=== PATIENT | male | born 1965 | race Hispanic/Latino ===

== ENCOUNTER 2017-08-14 17:19 | Inpatient (IN) | payer BC ==
[2017-08-14 19:12] LABS: BASO # 0.02 K/mm3 (0.0-2.0); BASO % 0.3 % (0.0-3.0); EOS # 0.1 (0.0-0.7); EOS % 1.2 % (1.5-5.0); GRAN # 3.89 (1.4-6.5); GRAN % 57.7 % (50.0-68.0); HEMATOCRIT 42.7 % (42.0-52.0); LYMPH # 2.3 (1.2-3.4); LYMPH % 33.5 % (22.0-35.0); MEAN CELL VOLUME 89.3 fl (80.0-105.0); MEAN CORPUSCULAR HEMOGLOBIN 31.4 pg (25.0-35.0); MEAN CORPUSCULAR HGB CONC 35.1 g/dl (31.0-37.0); MONO # 0.5 (0.1-0.6); MONO % 7.3 % (1.0-6.0); RED CELL DISTRIBUTION WIDTH 12.8 % (11.5-14.5); WHITE BLOOD COUNT 6.7 10^3/ul (4.5-11.0)
[2017-08-14 19:30] LABS: INR 1.04 (0.93-1.08); PARTIAL THROMBOPLASTIN TIME 29.1 Seconds (25.1-36.5)
[2017-08-14 19:54] LABS: ALB/GLOB RATIO 1.3 (1.1-1.8); ALKALINE PHOSPHATASE 68 U/L (38-126); ALT/SGPT 41 U/L (7-56); AST/SGOT 24 U/L (17-59); BILIRUBIN,TOTAL 0.9 mg/dL (0.2-1.3); BLOOD UREA NITROGEN 15 mg/dL (7-21); CALCIUM 9.2 mg/dL (8.4-10.5); CARBON DIOXIDE 26 mmol/L (21-33); CHLORIDE 104 mmol/L (98-107); GFR AFRICAN-AMERICAN > 60; GLUCOSE,RANDOM 93 mg/dL (70-110)
--- NOTE | 2017-08-14 19:57 | ED PDOC ---
Arrival/HPI - General Historian: Patient - History of Present Illness Symptom Onset: Gradual Symptom Course: Intermittent, Worsening Quality: Aching, Cramping Severity Level: 4 <Danita Valadez - Last Filed: 08/14/17 21:16> <Sandrine Francois - Last Filed: 08/17/17 13:30> - General Chief Complaint: Lower Extremity Problem/Injury Time Seen by Provider: 08/14/17 18:10 - History of Present Illness Narrative History of Present Illness (Text): 08/14/17 19:51 52-year-old male with a history of hypertension and stents with cardiac catheterization on August 02 presents today with swelling and pain to the right leg that started 3 days ago. Patient states after the catheterization he had some ecchymosis around the leg which has been increasing since the procedure. Patient states 3 days ago he developed pain in the posterior aspect of the right leg and developed swelling in the leg. Patient states he spoke with his vice president of business development and his vice president of business development advised him to take 2 doses of Motrin and if the pain did not improve the patient was to come to the emergency room. Patient states the pain is intermittent and he describes it as a crampy sensation to the posterior aspect of the leg. He denies numbness weakness or tingling in the extremity. Denies chest pain or shortness of breath. Patient states he is on Plavix and aspirin. Patient denies fevers or chills. Denies pain at the catheterization site. 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 kerotectomy both eyes. scrotal surgery as a child. 3 stents - Anesthesia Hx Anesthesia Reactions: No Hx Malignant Hyperthermia: No - Suicidal Assessment Feels Threatened In Home Enviroment: No <Danita Valadez - Last Filed: 08/14/17 21:16> Family/Social History - Physician Review Nursing Documentation Reviewed: Yes Family/Social History: Unknown Family HX Smoking Status: Never Smoked Hx Alcohol Use: No Hx Substance Use: No Hx Substance Use Treatment: No <Danita Valadez - Last Filed: 08/14/17 21:16> Allergies/Home Meds <Danita Valadez - Last Filed: 08/14/17 21:16> <Sandrine Francois - Last Filed: 08/17/17 13:30> Allergies/Adverse Reactions: Allergies No Known Allergies Allergy (Verified 11/15/13 16:06) Home Medications: Home Meds Medication Instructions Recorded Confirmed Valsartan [Diovan] 80 mg PO DAILY 11/15/13 08/14/17 Atorvastatin [Lipitor] 40 mg PO DAILY 03/16/14 08/14/17 Metoprolol Succinate 50 mg PO DAILY 03/16/14 08/14/17 Aspirin [Ecotrin] 81 mg PO ACBD 08/09/16 08/14/17 Ascorbic Acid [Vitamin C 500 mg 500 mg PO DAILY 07/04/17 08/14/17 Tab] Biotin 1,000 mcg PO DAILY 07/04/17 08/14/17 Clopidogrel [Plavix] 75 mg PO DAILY 07/04/17 08/14/17 Calcium Carbonate [Tums] 500 mg PO PRN PRN 07/26/17 08/14/17 Ibuprofen [Motrin Tab] 200 mg PO PRN PRN 07/26/17 08/14/17 Review of Systems - Review of Systems Constitutional: absent: Fatigue, Fevers Respiratory: absent: SOB, Cough Cardiovascular: absent: Chest Pain, Palpitations Gastrointestinal: absent: Abdominal Pain, Nausea, Vomiting Musculoskeletal: Arthralgias, Other (right leg swelling) Skin: Other (ecchymosis) Neurological: absent: Headache, Dizziness Psychiatric: absent: Anxiety, Depression <Danita Valadez - Last Filed: 08/14/17 21:16> Physical Exam Vital Signs Reviewed: Yes Temperature: Afebrile Blood Pressure: Normal Pulse: Regular Respiratory Rate: Normal Appearance: Positive for: Well-Appearing, Non-Toxic, Comfortable Pain Distress: None Mental Status: Positive for: Alert and Oriented X 3 - Systems Exam Head: Present: Atraumatic Neck: Present: Normal Range of Motion Respiratory/Chest: Present: Clear to Auscultation, Good Air Exchange. No: Respiratory Distress, Accessory Muscle Use Cardiovascular: Present: Regular Rate and Rhythm Abdomen: No: Tenderness, Rebound, Guarding Upper Extremity: Present: Normal Inspection Lower Extremity: Present: CALF TENDERNESS, NORMAL PULSES, Normal ROM, Tenderness (right leg; there is ecchymosis noted to the pubis, right groin, and right anterior thigh and medial and posterior distal thigh/upper leg. + edema to upper leg and slight erythema and edema noted to the calf. sensation and distal pulses intact. cap refill <2. ), Swelling, Erythema, Neurovascularly Intact, Capillary Refill < 2 s Neurological: Present: GCS=15, Speech Normal Skin: Present: Warm, Dry Psychiatric: Present: Alert, Oriented x 3 <Danita Valadez - Last Filed: 08/14/17 21:16> Vital Signs Temp Pulse Resp BP Pulse Ox 08/14/17 21:35 98.9 F 80 16 144/99 H 08/14/17 20:57 98.9 F 80 16 144/99 H 97 08/14/17 20:46 54 L 16 161/97 H 98 08/14/17 17:21 98.8 F 64 18 143/88 99 Medical Decision Making <Danita Valadez - Last Filed: 08/14/17 21:16> <Sandrine Francois - Last Filed: 08/17/17 13:30> ED Course and Treatment: 08/14/17 19:58 52-year-old male with right leg pain swelling and ecchymosis. Patient is status post cardiac catheterization on August 02. vitals stable. no CP or sob. CBC within normal limits CMP: wnl PT 11.4 PTT within normal limits INR 1.04 ekg; sinus bradycardia at 56b/m no st elevations. cxr; wnl Venous duplex of the right lower extremity: Partial common femoral and partial external iliac. Complete femoral and complete profundus femoral DVTs. Verbal report from monitor technician 08/14/17 20:[address] Avila in depth; agrees to lovenox Case discussed with Dr. Garcia in depth. agrees to lovenox. He would like Dr. Avila and Dr. Desmond Stephens on consults all results discussed in depth with patient and family. lovenox 90mg sq ordered. impression; DVT admit tp remote tele. (Danita Valadez) - Lab Interpretations Lab Results: 08/14/17 18:40 08/14/17 18:40 Lab Results 08/14/17 18:40: WBC 6.7, RBC 4.78, Hgb 15.0, Hct 42.7, MCV 89.3, MCH 31.4, MCHC 35.1, RDW 12.8, Plt Count 212, MPV 10.0, Gran % 57.7, Lymph % (Auto) 33.5, [place] % (Auto) 7.3 H, Eos % (Auto) 1.2 L, Baso % (Auto) 0.3, Gran # 3.89, Lymph # 2.3 , [place] # 0.5, Eos # 0.1, Baso # 0.02 08/14/17 18:40: PT 11.4, INR 1.04, APTT 29.1 08/14/17 18:40: Sodium 138, Potassium 3.8, Chloride 104, Carbon Dioxide 26, Anion Gap 12, BUN 15, Creatinine 0.8, Est GFR ( Amer) > 60, Est GFR (Non- Af Amer) > 60, Random Glucose 93, Calcium 9.2, Total Bilirubin 0.9, AST 24, ALT 41, Alkaline Phosphatase 68, Total Protein 7.0, Albumin 4.0, Globulin 3.0, Albumin/Globulin Ratio 1.3 - RAD Interpretation Radiology Orders: 08/14/17 18:11 DUPLEX LOWER EXTRM VEIN RIGHT [US] Stat 08/14/17 20:29 CHEST PORTABLE [RAD] Stat - Medication Orders Current Medication Orders: Acetaminophen (Tylenol 325mg Tab) 650 mg PO Q4H PRN PRN Reason: Headache Last Admin: 08/17/17 13:03 Dose: 650 mg MAR Pain/Vitals Document 08/17/17 13:03 AUBREE (Rec: 08/17/17 13:03 AUBREE [id number]) Pain Reassessment Is This A Pain ReAssessment? No Sleep Is patient sleeping during reassessment? No Presence of Pain Presence of Pain Yes Pain Scale Used Pain Scale Used Numeric Location Pain Location Body Physician Compensation Analyst Description Acute Intensity 4 Aggravating Factors None Alleviating Factors Medication Ascorbic Acid (Vitamin C 500 Mg Tab) 500 mg PO DAILY [facility] Last Admin: 08/17/17 09:46 Dose: 500 mg Aspirin (Ecotrin) 81 mg PO DAILY [facility] Last Admin: 08/17/17 09:46 Dose: 81 mg Atorvastatin Calcium (Lipitor) 40 mg PO DIN [facility] Last Admin: 08/16/17 18:14 Dose: 40 mg Clopidogrel Bisulfate (Plavix) 75 mg PO DAILY [facility] Last Admin: 08/17/17 09:46 Dose: 75 mg Dabigatran (Pradaxa) 75 mg PO BID [facility] PRN Reason: Protocol Last Admin: 08/17/17 09:46 Dose: 75 mg Hydralazine HCl (Apresoline) 10 mg PO Q6 PRN PRN Reason: Other Sodium Chloride (Sodium Chloride 0.45%) 1,000 mls @ 80 mls/hr IV .[id number] [facility] Last Admin: 08/17/17 01:09 Dose: 80 mls/hr eMAR Start Stop Document 08/17/17 01:09 ST (Rec: 08/17/17 01:09 ST [id number]) Intravenous Solution Start Date 08/17/17 Start Time 01:09 End Date 08/17/17 Losartan Potassium (Cozaar) 50 mg PO DAILY [facility] Last Admin: 08/17/17 09:46 Dose: 50 mg MAR Pulse and Blood Pressure Document 08/17/17 09:46 AUBREE (Rec: 08/17/17 09:48 AUBREE [id number]) Pulse Pulse Rate (60-90) 68 Blood Pressure Blood Pressure (100/60-150/90) 115/73 Metoprolol Succinate (Toprol Xl) 50 mg PO BRK [facility] Last Admin: 08/17/17 07:59 Dose: 50 mg MAR Pulse and Blood Pressure Document 08/17/17 07:59 AUBREE (Rec: 08/17/17 07:59 AUBREE [id number]) Pulse Pulse Rate (60-90) 68 Blood Pressure Blood Pressure (100/60-150/90) 123/78 Discontinued Medications Enoxaparin Sodium (Lovenox) 90 mg SC STAT STA PRN Reason: Protocol Stop: 08/14/17 20:33 Last Admin: 08/14/17 21:27 Dose: 90 mg Subcutaneous Administrations Document 08/14/17 21:27 HI (Rec: 08/14/17 21:31 HI [id number]) Injection Site MAR Injection Site Left Abdomen Charges for Administration # of Subcutaneous Administrations 1 Enoxaparin Sodium (Lovenox) 90 mg SC Q12H JEFF PRN Reason: Protocol Last Admin: 08/15/17 16:52 Dose: 90 mg Subcutaneous Administrations Document 08/15/17 16:52 VS (Rec: 08/15/17 16:52 VS [id number]) Injection Site MAR Injection Site Right Abdomen Charges for Administration # of Subcutaneous Administrations 1 Heparin Sodium (Porcine) (Heparin) 7,000 units 80 units/kg (7000 units) IV ONCE ONE PRN Reason: Protocol Stop: 08/16/17 02:01 Last Admin: 08/16/17 02:01 Dose: 7,000 units eMAR Start Stop Document 08/16/17 02:01 NE (Rec: 08/16/17 02:01 NE [id number]) Intravenous Solution Start Date 08/16/17 Start Time 02:01 Hydralazine HCl (Apresoline) 10 mg IVP ONCE ONE Stop: 08/16/17 16:21 Last Admin: 08/16/17 16:27 Dose: 10 mg IVP Administration Document 08/16/17 16:27 SG (Rec: 08/16/17 16:29 SG [id number]) Charges for Administration # of IVP Administrations 1 MAR Pulse and Blood Pressure Document 08/16/17 16:27 SG (Rec: 08/16/17 16:29 SG [id number]) Pulse Pulse Rate (60-90) 65 Blood Pressure Blood Pressure (100/60-150/90) 152/108 Heparin Sodium/Sodium Chloride (Heparin 54996 Units/250ml 1/2 Normal Saline) 25 ,000 units in 250 mls @ 15.709 mls/hr IV .[id number] PRN; Protocol; 18 UNITS/KG/HR PRN Reason: ADJUST RATE PER PROTOCOL Last Admin: 08/16/17 02:01 Dose: 18 units/kg/hr, 15.709 mls/hr eMAR Start Stop Document 08/16/17 02:01 NE (Rec: 08/16/17 02:09 NE [id number]) Intravenous Solution Start Date 08/16/17 Start Time 02:02 Titration Intervention Document 08/16/17 02:01 NE (Rec: 08/16/17 02:09 NE [id number]) Titration Intake Waste Amount 0 Container Volume 250 Titration Dosing Titration Dose 18 IV Rate 15.709 Intake/Decrease Started Heparin Sodium/Sodium Chloride (Heparin 16052 Units/250ml 1/2 Normal Saline) 25 ,000 units in 250 mls @ 15.546 mls/hr IV .Q16H5M PRN; 18 UNITS/KG/HR PRN Reason: ADJUST RATE PER PROTOCOL Last Admin: 08/16/17 14:28 Dose: 15.546 mls/hr eMAR Start Stop Document 08/16/17 14:28 SG (Rec: 08/16/17 14:28 SG [id number]) Intravenous Solution Start Date 08/16/17 Start Time 14:28 Heparin Sodium/Sodium Chloride (Heparin 79048 Units/250ml 1/2 Normal Saline) 25 ,000 units in 250 mls @ 14.836 mls/hr IV .[id number] PRN; Protocol; 17 UNITS/KG/HR PRN Reason: ADJUST RATE PER PROTOCOL Last Titration: 08/17/17 01:10 Dose: 15 units/kg/hr, 13.091 mls/hr Titration Intervention Document 08/17/17 01:10 ST (Rec: 08/17/17 01:12 ST [id number]) Titration Intake Titration Intake 150 Cumulative Intake 150 Cumulative Intake (Rx) 150 Waste Amount 0 Container Volume 100 Titration Dosing Titration Dose 15 IV Rate 13.091 Intake/Decrease Decreased Cumulative Dose 69722 Losartan Potassium (Cozaar) 50 mg PO STAT STA Stop: 08/15/17 16:49 Last Admin: 08/15/17 16:52 Dose: 50 mg MAR Pulse and Blood Pressure Document 08/15/17 16:52 VS (Rec: 08/15/17 16:52 VS [id number]) Pulse Pulse Rate (60-90) 63 Blood Pressure Blood Pressure (100/60-150/90) 156/111 Valsartan (Diovan) 80 mg PO DAILY [facility] Last Admin: 08/16/17 13:05 Dose: 80 mg Valsartan (Diovan) 80 mg PO STAT STA Stop: 08/15/17 16:38 Last Admin: 08/15/17 17:01 Dose: Zolpidem Tartrate (Ambien) 5 mg PO STAT STA PRN Reason: Protocol Stop: 08/15/17 21:00 Last Admin: 08/15/17 21:26 Dose: 5 mg Behavioural Document 08/15/17 21:26 NE (Rec: 08/15/17 21:26 NE [place] [id number]) Maintenance Maintenance Dose No Nonmedicinal Nonmedicinal Interventions Redirect Therapeutic Communication Behavior Behavior for Medication: Insomnia Re-Assess: Reassess Psych Meds Document 08/15/17 22:26 NE (Rec: 08/15/17 23:59 NE [facility] [id number]) Reassess Psych Med Effective Zolpidem Tartrate (Ambien) 10 mg PO STAT STA PRN Reason: Protocol Stop: 08/16/17 22:25 Last Admin: 08/16/17 22:38 Dose: 10 mg Behavioural Document 08/16/17 22:38 ST (Rec: 08/16/17 22:38 [place] [id number]) Behavior Behavior for Medication: Insomnia Re-Assess: Reassess Psych Meds Document 08/16/17 23:38 ST (Rec: 08/16/17 23:48 [place] [id number]) Reassess Psych Med Effective - PA / COOK ROOM SUPERVISOR / Resident Statement MD/DO has reviewed & agrees with the documentation as recorded. <Sandrine Francois - Last Filed: 08/17/17 13:30> Disposition/Present on Arrival - Present on Arrival Any Indicators Present on Arrival: No History of DVT/PE: No History of Uncontrolled Diabetes: No Urinary Catheter: No History of Decub. Ulcer: No History Surgical Site Infection Following: None - Disposition Have Diagnosis and Disposition been Completed?: Yes Disposition Time: 20:40 Patient Plan: Admission <Danita Valadez - Last Filed: 08/14/17 21:16> <Sandrine Francois - Last Filed: 08/17/17 13:30> - Disposition Diagnosis: DVT (deep venous thrombosis) Disposition: HOSPITALIZED Patient Problems: Current Active Problems Problem Status Onset DVT (deep venous thrombosis) Acute Condition: FAIR
[2017-08-14 20:24] LABS: POTASSIUM 3.8 mmol/L (3.6-5.0); SODIUM 138 mmol/L (132-148)
[2017-08-14] MEDS ORDERED: Enoxaparin 100 mg Syringe SC STA (20:32)
[2017-08-14 21:42] VITALS: BMI 30.5
--- NOTE | 2017-08-15 07:45 | CP.PCM.PCO ---
Physician Communication Note - Physician Communication Note Physician Communication Note: Massive DVT-consult Dr Desmond Stephens
--- NOTE | 2017-08-15 08:11 | RAD ---
HISTORY: DVT COMPARISON: Chest radiographs 03/14/2014. FINDINGS: LUNGS: No active pulmonary disease. PLEURA: No significant pleural effusion identified, no pneumothorax apparent. CARDIOVASCULAR: Normal. OSSEOUS STRUCTURES: No significant abnormalities. VISUALIZED UPPER ABDOMEN: Normal. OTHER FINDINGS: None. IMPRESSION: No interval acute cardiopulmonary disease appreciated.
--- NOTE | 2017-08-15 08:55 | US ---
PROCEDURE: Right lower extremity venous US HISTORY: Leg pain and swelling. Evaluate for DVT. PHYSICIAN(S): Desmond Stephens M.D. TECHNIQUE: Duplex sonography and color-flow Doppler with graded compression were used to evaluate the deep venous system of the right lower extremity. FINDINGS: There is hypoechoic, a acute, occlusive thrombus noted in the right common femoral vein, femoral vein, and profunda femoral vein. Interestingly, the right popliteal vein and visualized right tibial veins are patent. Nonocclusive thrombus is noted in the distal right external iliac vein IMPRESSION: 1. Acute, occlusive hypoechoic thrombus in the right common femoral vein, femoral vein, and proximal profunda femoral vein. If symptoms warrant, the patient can be evaluated for venous thrombolysis
[2017-08-15] MEDS: Metoprolol Succinate 50 mg XL Tab PO SCH (12:52)
[2017-08-15] MEDS ORDERED: Enoxaparin 100 mg Syringe SC SCH (16:45)
[2017-08-15] MEDS: Sodium Chloride 0.45% 1,000 ML IV SCH (21:26)
--- NOTE | 2017-08-15 23:38 | CARD ---
APPROVED REPORT EKG Measurement Heart [id number] <Conclusion> Sinus bradycardia Otherwise normal ECG
--- NOTE | 2017-08-16 01:41 | CON ---
DATE: 08/15/2017 CHIEF COMPLAINT/HISTORY OF PRESENT ILLNESS: This is a 52-year-old gentleman who was admitted with right leg swelling and an extensive right iliofemoral DVT. PAST MEDICAL HISTORY: Significant for a recent cardiac catheterization from right groin approach on 08/02/2017. There was bruising and ecchymosis after the procedure. Three days ago, his leg began swelling with significant discomfort. He denies any pulmonary symptoms or shortness of breath. FAMILY HISTORY: He has no family history for venous thromboembolism. PHYSICAL EXAMINATION: EXTREMITIES: His right lower extremity is significantly swollen, above and below the knee. Tenderness is present. Distal pulses are present. He is resting comfortably in bed. ASSESSMENT AND PLAN: I discussed all options with the patent. This included traditional anticoagulation versus catheter directed thrombolysis. Given his age and the extensive right iliofemoral deep venous thrombosis, he may benefit from catheter -- directed thrombolysis. I will discuss the situation with Dr. Garcia and proceed if the patient agrees. Desmond Stephens MD [email or web address]
[2017-08-16] MEDS ORDERED: Heparin25000 units/250ml 1/2NS 25,000 UNITS/250 ML BAG IV PRN ×4 (02:00→18:09)
[2017-08-16 07:55] LABS: BASO # 0.04 K/mm3 (0.0-2.0); BASO % 0.6 % (0.0-3.0); EOS # 0.1 (0.0-0.7); EOS % 1.1 % (1.5-5.0); GRAN # 3.96 (1.4-6.5); GRAN % 61.4 % (50.0-68.0); HEMATOCRIT 43.3 % (42.0-52.0); LYMPH # 1.9 (1.2-3.4); LYMPH % 29.8 % (22.0-35.0); MEAN CELL VOLUME 88.2 fl (80.0-105.0); MEAN CORPUSCULAR HEMOGLOBIN 31.2 pg (25.0-35.0); MEAN CORPUSCULAR HGB CONC 35.3 g/dl (31.0-37.0); MEAN PLATELET VOLUME 9.9 fl (7.0-11.0); MONO # 0.5 (0.1-0.6); MONO % 7.1 % (1.0-6.0); RED CELL DISTRIBUTION WIDTH 12.8 % (11.5-14.5); WHITE BLOOD COUNT 6.5 10^3/ul (4.5-11.0)
[2017-08-16 08:13] LABS: ALB/GLOB RATIO 1.4 (1.1-1.8); ALKALINE PHOSPHATASE 54 U/L (38-126); ALT/SGPT 38 U/L (7-56); AST/SGOT 25 U/L (17-59); BILIRUBIN,TOTAL 1.2 mg/dL (0.2-1.3); BLOOD UREA NITROGEN 10 mg/dL (7-21); CALCIUM 9.1 mg/dL (8.4-10.5); CARBON DIOXIDE 28 mmol/L (21-33); CHLORIDE 106 mmol/L (98-107); CHOLESTEROL 117 mg/dL (130-200); GFR AFRICAN-AMERICAN > 60; GLUCOSE,RANDOM 103 mg/dL (70-110); MAGNESIUM 1.9 mg/dL (1.7-2.2); PHOSPHOROUS 2.9 mg/dL (2.5-4.5); POTASSIUM 3.8 mmol/L (3.6-5.0); SODIUM 139 mmol/L (132-148); TOTAL PROTEIN 6.8 g/dL (5.8-8.3)
[2017-08-16] MEDS: Metoprolol Succinate 50 mg XL Tab PO SCH (08:19)
--- NOTE | 2017-08-16 09:00 | CON ---
DATE: 08/15/2017 REASON FOR CONSULTATION: Coronary artery disease, status post recently a stent, DVT. BRIEF CLINICAL HISTORY: This is a 52-year-old male with past medical history significant for coronary artery disease status post PTCA on LAD with VANCE and ramus intermedius on 03/15/2014. Recently, when the patient initially presented with non-STEMI. Recently, the patient had stress test, is abnormal. So, the patient is scheduled for cardiac catheterization, and the patient underwent successful PTCA with VANCE of circumflex on 08/01/2017, who was complaining of leg pain, so I advised to come to the ER. The patient came to the ER and the duplex scan done that shows extensive DVT of right common femoral vein and proximal profunda femoral vein. PAST MEDICAL HISTORY: Significant for coronary artery status post PTCA of circumflex on 08/01/2017 and history of non-STEMI and PTCA of LAD and ramus intermedius on 03/15/2014, hypertension, hyperlipidemia. 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 Previous cardiac workup as follows: The patient had admission to recent cardiac catheterization and subsequently stent placed in circumflex dated 08/01/2017 that revealed single vessel critical circumflex, 90% stenosis mid. Previously, patent stent in the LAD and ramus intermedius, preserved LV function, ejection fraction 55% to 60%. EDP in the range of 60. Successful PTCA with VANCE of the circumflex done dated 08/01/2017. The patient had recent stress test done prior to cardiac catheterization that showed ejection fraction 74%, reversible ischemia. The patient had echocardiography done dated 07/07/2017 that shows ejection fraction of 46%. Trace mitral regurgitation, trace tricuspid regurgitation. CURRENT MEDICATIONS: The patient is taking valsartan, Diovan 80 mg, metoprolol succinate 50 mg daily, ibuprofen 200 mg daily, clopidogrel 75 mg, calcium carbonate 50, Biotin 1000, atorvastatin 40, aspirin 81 mg daily. REVIEW OF SYSTEMS: As per HPI. PHYSICAL EXAMINATION: As follows: VITAL SIGNS: Temperature afebrile, heart rate 63, blood pressure 132/89. HEENT: PERRLA, intact. NECK: Supple. No carotid bruits or thyromegaly. CHEST: Clear to auscultation. HEART: S1 and S2 regular. ABDOMEN: Soft. EXTREMITIES: Clubbing and cyanosis negative. LABORATORY DATA: Blood workup as follows: WBC 6.7, hemoglobin 15, hematocrit 42.7, and platelet count 212. Chemistry shows sodium 130, potassium 3.8, chloride 104, carbon dioxide 26, anion gap of 12, BUN 15, and creatinine 0.8. Random sugar 93. Calcium 9.2. Bilirubin 0.9. AST 24. ALT 41. Alkaline phosphatase 68, total protein 7, albumin 4, albumin/globulin ratio 3. IMPRESSION: Acute deep venous thrombosis for right lower extremity, hypertension, hyperlipidemia, coronary artery disease, acute deep venous thrombosis. Discussed with Dr. Hoskins. We will send lipid profile, TSH, hemoglobin A1c. I will also send protein C, protein S, antithrombin III, antiphospholipid antibody. Also, involve Hematology, Dr. Laurent, to rule out any hypercoagulable state. Discussed with Dr. Stephens. If Dr. Stephens is going to intervention, we will hold Lovenox for now. If the decision is made, we will start Lovenox back and start tomorrow, Eliquis if the patient is not going for intervention for clot thrombolysis. Discussed with the patient at length. We will also send PRU level tomorrow, lipid profile, TSH, hemoglobin A1c. We will get the PRU level to see any resistance of Plavix. Thank you Dr. Hoskins for providing us the opportunity in taking care of Manuel Benítez. Ean Avila MD cc:
[2017-08-16 09:15] LABS: INR 1.12 (0.93-1.08); PARTIAL THROMBOPLASTIN TIME 151.6 Seconds (25.1-36.5)
[2017-08-16] MEDS ORDERED: Lidocaine 2% Inj (20ml) ONE (09:33)
[2017-08-16] MEDS ORDERED: Iodixanol 320 MG/ML 200 ML BOTTLE IV ONE (09:35)
[2017-08-16] MEDS ORDERED: Iodixanol 320 MG/ML 100 ML BOTTLE IV ONE (09:35)
[2017-08-16] MEDS ORDERED: Midazolam 2 MG/2 ML VIAL ONE ×4 (09:35→11:59)
[2017-08-16] MEDS ORDERED: Nitroglycerin 50mg in D5W 0 MG/0 ML BOTTLE IV ONE (09:36)
--- NOTE | 2017-08-16 10:44 | PN ---
DATE: 08/16/2017 FOLLOWUP NOTE SUBJECTIVE: He is comfortable in bed, in no acute distress. Right leg swelling and pain decreased. He still has petechia in the right leg. He is currently on heparin drip, possible thrombectomy today. REVIEW OF SYSTEMS: As per HPI. Rest of 12-point review of systems reviewed, negative. PHYSICAL EXAMINATION: GENERAL: Comfortable in bed, in no acute distress. VITAL SIGNS: Stable. Temperature afebrile and temperature 98.7, heart rate 59 per minute, blood pressure 150/90, heart rate is 110 per minute, respiratory rate 20 per minute, oxygen saturation 95% on room air. HEENT: Normal. NECK: Supple. CHEST: Air entry present and equal bilateral. No added sound. CARDIOVASCULAR EXAM: S1 and S2 normal. No murmur. No gallop. ABDOMEN: Soft, nontender. No hepatosplenomegaly. EXTREMITIES: No edema. CENTRAL NERVOUS SYSTEMS: Alert and oriented x3. No focal sensory or motor deficits. Right extremity swelling and pain decreased. SKIN: Petechia is present. CURRENT MEDICATIONS: Heparin drip, Tylenol, aspirin, Lipitor, Plavix, Cozaar, Diovan 80 mg daily, IV fluids, and metoprolol 50 mg daily. LABORATORY DATA: White count 6.4, hemoglobin 15.3, hematocrit . Sodium 139, potassium 3.9, magnesium 1.9. ASSESSMENT: 1. Deep venous thrombosis, right lower extremity. 2. Coronary artery disease. 3. Hypertension. 4. Hyperlipidemia. PLAN: He is currently on heparin drip. Possible thrombectomy today. If he does not undergo thrombectomy, he can be started on Eliquis 10 mg p.o. b.i.d. for 7 days, which can be after that 5 mg p.o. b.i.d. Thrombophilia workup is pending. We will evaluate in office further. Discussed with the patient, discussed with staff nurse. Evelyn Laurent MD
--- NOTE | 2017-08-16 11:15 | CON ---
DATE: 08/15/2017 REASON FOR CONSULTATION: Deep venous thrombosis, right leg. HISTORY OF PRESENT ILLNESS: Mr. Benítez is a young 52-year-old male admitted to the hospital with right leg swelling and pain. Doppler ultrasound showed extensive DVT on the right side of the leg extending into the iliac vein. He had cardiac catheterization done two weeks ago. No family history of blood clots. No personal history of blood clot prior to that. Currently pain and swelling of the leg is better. PAST MEDICAL HISTORY: Coronary artery disease status post cardiac stenting. 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 FAMILY HISTORY: No family history of blood clots or blood disorder. PERSONAL HISTORY: Nonsmoker. No history of alcohol abuse. SOCIAL HISTORY: Lives at home with a girlfriend. HOME MEDICATION: Diovan 80 mg daily, metoprolol 50 mg daily, Motrin 20 mg daily, Plavix 75 mg daily, Biotin 100, Lipitor 40 mg daily, and aspirin 81 mg daily. REVIEW OF SYSTEMS: As per HPI. PHYSICAL EXAMINATION GENERAL: Comfortable in bed in no acute distress. VITAL SIGNS: Temperature is 98.7, heart rate is 80 per minute, and blood pressure is 130/80. HEENT: Normal. NECK: No lymph adenopathy. CHEST: Air entry present and equal bilaterally. No added sound. CARDIOVASCULAR: S1 and S2 normal. No murmur and no gallop. ABDOMEN: Soft and nontender. No hepatosplenomegaly. EXTREMITIES: Right extremity swelling present. Extensive petechia on the right thigh. CENTRAL NERVOUS SYSTEM: Alert and oriented x3. No focal, sensory, or motor deficit. SKIN: As above. LABORATORY DATA: White count of 6.7, hemoglobin of 15, hematocrit of 42.7, and platelet of 212. Sodium of 130, potassium of 3.8, chloride of 104, BUN of 15, creatinine of 0.8, and calcium of 9.2. ASSESSMENT AND PLAN: 1. Deep venous thrombosis, right lower extremity. 2. Possible hypocoagulable state. 3. Coronary artery disease. 4. Hypertension. 5. Hyperlipidemia. PLAN: He received two doses of Lovenox since admission, last dose was at 4:00 p.m. today. He was evaluated by Dr. Desmond Stephens for thrombectomy and tPA. I will start the heparin drip, which can be started at 2:00 a.m. on 08/16/2017. Heparin drip can be stopped, if he undergoes thrombectomy tomorrow. Dr. Desmond Stephens will evaluate tomorrow morning for possible procedure. We will recommend to continue aspirin and Plavix. Thrombophilia workup ordered and results pending. Discussed at length with the patient, length of anticoagulation will be six months to one year period depending on the status of blood clots. He was encouraged to ambulate. Compression stocking on the right leg. Thank you Dr. Garcia for allowing us to participate in Mr. Benítez's care. We will continue to follow. Evelyn Laurent MD
[2017-08-16] MEDS ORDERED: Heparin 25,000units in D5W 25,000 UNITS/250 ML BAG IV ONE (12:08)
[2017-08-16] MEDS: Sodium Chloride 0.45% 1,000 ML IV SCH ×2 (14:25→22:39)
--- NOTE | 2017-08-16 14:49 | PN ---
DATE: 08/16/2017 REASON FOR CONSULTATION AND FOLLOWUP: Coronary artery disease status post recently stent, admitted with extensive deep venous thrombosis of right lower extremity. SUBJECTIVE: The patient denies any chest pain, shortness of breath, or any palpitation. OBJECTIVE/PHYSICAL EXAMINATION: As follows: GENERAL: Not in apparent distress. Concerned about procedure having done for thrombolysed of right DVT. VITAL SIGNS: Temperature is afebrile, heart rate is 59, and blood pressure is 151/98. HEENT: PERRLA. Extraocular muscles are intact. NECK: Supple. No carotid bruit or thyromegaly. CHEST: Clear to auscultation. HEART: S1 and S2 regular. ABDOMEN: Soft. EXTREMITIES: Clubbing and cyanosis negative. LABORATORY DATA: Blood workup as follows: WBC of 6.5, hemoglobin of 15, hematocrit of 43.3, and platelet count of 202. Chemistry shows sodium of 130, potassium of 3.0, chloride of 106, carbon dioxide of 28, anion gap of 9, BUN of 10, and creatinine of 0.7. TSH of 1.02. Cholesterol of 117, LDL of 66 and HDL of 37, and triglyceride of 85. IMPRESSION: A 52 year old male with past medical history significant for coronary artery disease status post percutaneous transluminal coronary angioplasty twice, history of percutaneous transluminal coronary angioplasty of left anterior descending and ramus intermedius with drug eluting stent on 03/15/2014, and most recently the patient is circumflex with drug-eluting stent on 08/01/2017. Admitted day before yesterday with leg swelling and found to be extensive deep venous thrombosis of right common femoral. The patient is scheduled today for thrombolysed of deep vein thrombosis. Denies any chest pain or shortness of breath. The patient got Lovenox, holding Eliquis for the procedure. RECOMMENDATIONS: When the procedure is completed, we will start 10 mg of Eliquis b.i.d. for 7 days followed by 5 mg b.i.d. Discussed with Hematology/Oncology. Discussed with Dr. Hoskins. Discussed with Dr. Desmond Stephens. The patient is going for thrombolysis with Ekos catheter. The patient has PRU level done today was 75, so consistent with sensitive to Plavix, it means platelet is functioning normal aggregation inhibition of the platelet with Plavix, does not need to change antiplatelet therapy. PRU level is 75. We did it because of the patient has extensive DVT. Coagulation workup including antiphospholipid III, protein C, protein S, antiphospholipid panel, antithrombin III, factor V Leiden mutation, factor V activity, protein C and protein S, antigen and activity as well as sent. Further Hem/Onc work as per Hematology. We will follow with you. Thank you Dr. Hoskins for providing us the opportunity in taking care of Jeyson. In between continue baby aspirin, continue Plavix and dual antiplatelet therapy. As mentioned after the thrombolysed, we will consider to starting Eliquis. We will follow with you. Ean Avila MD
--- NOTE | 2017-08-16 19:36 | VASCULAR ---
PROCEDURE: 1. Right lower extremity venogram 2. IVC gram 3. Right lower extremity Angiojet venous thrombolysis. 4. Right external iliac vein angioplasty and stent placement HISTORY: Extensive right iliofemoral DVT. Leg swelling and pain. Needs thrombolysis. PHYSICIAN(S): Desmond Stephens M.D. TECHNIQUE: The relative risks and indications of the procedure were explained to the patient and consent obtained. The patient was hydrated prior to the procedure and the appropriate labs drawn. The patient was placed prone on the arteriography table in the right popliteal fossa prepped and draped usual sterile fashion. Conscious sedation monitoring were provided throughout the procedure by a nurse. The right popliteal vein was punctured under ultrasound guidance with a micropuncture set. Eight Estonian sheath was placed. An overlapping right lower extremity venogram was performed. A 5 Estonian catheter was advanced to the right common femoral vein. Additional imaging of the right common femoral vein and right iliac system was performed. Air was advanced across a critical stenosis in the distal right external iliac vein. An IVC gram was performed. 0.035 support wire was placed in the IVC. Angiojet thrombolysis of the right external iliac vein and right common femoral vein was performed using power pulse technique. 25 mg of tPA is instilled and the do well time was 20 minutes. Angiojet thrombectomy was performed for approximately 250 seconds. An excellent vena graphic result was obtained with 100 percent clearance of the thrombus. There is a critical E centric stenosis of the distal right external iliac vein. Exchange was made for a 0.014 wire. Intravascular ultrasound of these right external and common femoral vein was performed. This revealed a severe narrowing of the terminal right external iliac vein. There appeared to be a dissection present. 14 mm x 6 cm self expanding stent was deployed across the right external iliac vein stenosis. This was dilated with a 14 mm balloon. Completion venograms were obtained. The sheath was removed and hemostasis obtained. The patient tolerated the procedure well. Class 1 thigh-high compression stocking was placed on the right. The heparin was continued. FINDINGS: Occlusive thrombus was noted in the right external iliac vein, right common femoral vein and right GSV proximally. There is a critical E centric stenosis of the right external iliac vein at the inguinal ligament. This was successfully treated with 14 mm self expanding stent. The IVC is normal in appearance. IMPRESSION: 1.Right iliofemoral DVT. 2. Successful Angiojet thrombolysis as described above 3. Severe E centric critical stenosis of the right external iliac vein at the inguinal ligament. This was successfully treated with a 14 mm self expanding stent and balloon angioplasty 4. A CT scan of the abdomen pelvis was ordered to evaluate for pelvic pathology.
--- NOTE | 2017-08-16 22:10 | CP.PCM.PN ---
Subjective - Date & Time of Evaluation Date of Evaluation: 08/16/17 Time of Evaluation: 22:25 - Subjective Subjective: S:Patient was seen at bedside. He requested a sleeping pill. States that ambien that he got yesterday did not help him. Has no other complaints now except that urine is dark color. Medical record was reviewed. O: Last Vital Signs 3 Temp 98.2 F 08/16/17 18:00 Pulse 78 08/16/17 19:55 Resp 20 08/16/17 19:55 BP 146/87 08/16/17 19:55 Pulse Ox 95 08/16/17 08:39 Awake, alert,not in distress. LUNGS:Normal breathing pattern. A:Adjustment insomnia. P:Ambien 10 mg PO now. Objective - Vital Signs/Intake and Output Vital Signs (last 24 hours): Temp Pulse Resp BP Pulse Ox 98.2 F 78 20 146/87 95 08/16/17 18:00 08/16/17 19:55 08/16/17 19:55 08/16/17 19:55 08/16/17 08:39 - Medications Medications: Current Medications Acetaminophen (Tylenol 325mg Tab) 650 mg PO Q4H PRN PRN Reason: Headache Last Admin: 08/15/17 15:38 Dose: 650 mg Ascorbic Acid (Vitamin C 500 Mg Tab) 500 mg PO DAILY [facility] Last Admin: 08/15/17 12:52 Dose: 500 mg Aspirin (Ecotrin) 81 mg PO DAILY [facility] Last Admin: 08/15/17 12:52 Dose: 81 mg Atorvastatin Calcium (Lipitor) 40 mg PO DIN [facility] Last Admin: 08/16/17 18:14 Dose: 40 mg Clopidogrel Bisulfate (Plavix) 75 mg PO DAILY [facility] Last Admin: 08/15/17 12:52 Dose: 75 mg Hydralazine HCl (Apresoline) 10 mg PO Q6 PRN PRN Reason: Other Sodium Chloride (Sodium Chloride 0.45%) 1,000 mls @ 80 mls/hr IV .[id number] [facility] Last Admin: 08/16/17 14:25 Dose: 80 mls/hr Heparin Sodium/Sodium Chloride (Heparin 52382 Units/250ml 1/2 Normal Saline) 25 ,000 units in 250 mls @ 14.836 mls/hr IV .[id number] PRN; Protocol; 17 UNITS/KG/HR PRN Reason: ADJUST RATE PER PROTOCOL Last Admin: 08/16/17 18:16 Dose: 17 units/kg/hr, 14.836 mls/hr Losartan Potassium (Cozaar) 50 mg PO DAILY [facility] Last Admin: 08/16/17 13:03 Dose: 50 mg Metoprolol Succinate (Toprol Xl) 50 mg PO BRK [facility] Last Admin: 08/16/17 08:19 Dose: 50 mg Valsartan (Diovan) 80 mg PO DAILY [facility] Last Admin: 08/16/17 13:05 Dose: 80 mg - Labs Labs: 08/16/17 07:40 08/16/17 07:40 PT 12.3 SECONDS (9.4-12.5) 08/16/17 08:50 INR 1.12 (0.93-1.08) H 08/16/17 08:50 APTT 68.9 Seconds (25.1-36.5) H 08/16/17 16:04
[2017-08-17] MEDS: Sodium Chloride 0.45% 1,000 ML IV SCH ×3 (01:09→14:36)
[2017-08-17 06:21] LABS: HEMATOCRIT 40.6 % (42.0-52.0); MEAN CELL VOLUME 87.7 fl (80.0-105.0); MEAN CORPUSCULAR HEMOGLOBIN 30.5 pg (25.0-35.0); MEAN CORPUSCULAR HGB CONC 34.7 g/dl (31.0-37.0); MEAN PLATELET VOLUME 10.1 fl (7.0-11.0); RED CELL DISTRIBUTION WIDTH 12.8 % (11.5-14.5); WHITE BLOOD COUNT 9.4 10^3/ul (4.5-11.0)
[2017-08-17 06:36] LABS: INR 1.12 (0.93-1.08)
[2017-08-17 06:44] LABS: BLOOD UREA NITROGEN 10 mg/dL (7-21); CALCIUM 8.7 mg/dL (8.4-10.5); CARBON DIOXIDE 25 mmol/L (21-33); CHLORIDE 106 mmol/L (98-107); GFR AFRICAN-AMERICAN > 60; GLUCOSE,RANDOM 97 mg/dL (70-110); POTASSIUM 3.2 mmol/L (3.6-5.0); SODIUM 137 mmol/L (132-148)
--- NOTE | 2017-08-17 06:55 | CP.PCM.PCO ---
Physician Communication Note - Physician Communication Note Physician Communication Note: Hematuria gone/OK [facility]-anticoagulant per Dr Laurent
[2017-08-17] MEDS ORDERED: Barium Sulfate Susp 2.1% w/v, 2.0% w/w 450 mL Bottle PO ONE (07:05)
[2017-08-17] MEDS: Metoprolol Succinate 50 mg XL Tab PO SCH (07:59)
--- NOTE | 2017-08-17 12:54 | CT ---
PROCEDURE: CT Abdomen and Pelvis with contrast HISTORY: Rt ext iliac vein stent. R/O pelvic mass COMPARISON: None. TECHNIQUE: Contrast dose: 150 cc of Omni 350 Radiation dose: Total exam DLP = 874 mGy-cm. This CT exam was performed using one or more of the following dose reduction techniques: Automated exposure control, adjustment of the mA and/or kV according to patient size, and/or use of iterative reconstruction technique. FINDINGS: LOWER THORAX: Unremarkable. LIVER: Unremarkable. No gross lesion or ductal dilatation. GALLBLADDER AND BILE DUCTS: Unremarkable. PANCREAS: Unremarkable. No gross lesion or ductal dilatation. SPLEEN: Unremarkable. ADRENALS: Unremarkable. No mass. KIDNEYS AND URETERS: Unremarkable. No hydronephrosis. No solid mass. VASCULATURE: There is a 6 cm long vascular stent in the right external iliac vein. BOWEL: Unremarkable. No obstruction. No gross mural thickening. APPENDIX: Normal appendix. PERITONEUM: Unremarkable. No free fluid. No free air. LYMPH NODES: Unremarkable. No enlarged lymph nodes. BLADDER: Unremarkable. REPRODUCTIVE: Unremarkable. BONES: No acute fracture. OTHER FINDINGS: None. IMPRESSION: No evidence of a pelvic mass. Right external iliac stent.
[2017-08-17] MEDS: Potassium Chloride 20 mEq ER Tab PO SCH ×3 (16:47→19:16)
--- NOTE | 2017-08-17 17:28 | CP.PCM.PCO ---
Physician Communication Note - Physician Communication Note Physician Communication Note: continue pradaxa, thrombophillia work up pending, will FU in office .
--- NOTE | 2017-08-17 23:23 | PN ---
DATE: 08/17/2017 LOCATION: The patient in room 274, bed 2. REASON FOR CONSULTATION: Followup coronary artery disease status post recent stent insertion. Extensive deep venous thrombosis of the right lower extremity. SUBJECTIVE: The patient denies any chest pain, shortness of breath, or palpitation. The patient lying flat in bed without any cardiac symptoms. PHYSICAL EXAMINATION: VITAL SIGNS: Blood pressure 138/88, respirations 20, pulse 75, temperature 98.2. HEENT: Head is normocephalic. Eyes; pupils normal. Conjunctiva normal. Nose and throat normal. NECK: JVP low. Carotid equal. Thorax: AP diameter normal. LUNGS: Clear. CARDIOVASCULAR: S1 and S2. ABDOMEN: Soft, nontender. No organomegaly. Bowel sounds normal. EXTREMITIES: No clubbing. No cyanosis. LABORATORY DATA: WBC 9.4, hemoglobin 14.1, hematocrit 40.6, and platelets 175. Sodium 137, potassium 3.2, BUN 10, and creatinine 0.8. TSH 1.02. Prothrombin time 12.4. INR 1.12. PTT 93.8. DIAGNOSES: Coronary artery disease status post angioplasty twice. History of angioplasty, stent insertion of left anterior descending and ramus intermedius with the drug eluting stent on 03/15/2014 and most recently the patient has circumflex angioplasty and drug-eluting stent insertion on 08/01/2017. The patient admission at this time is due to swelling and discoloration and pain in the right leg. PLAN: The patient had thrombolysed deep venous thrombosis. The patient started on Pradaxa 75 mg p.o. b.i.d., Plavix 75 mg daily, , potassium 20 mEq p.o. b.i.d. has been given, heparin was given yesterday 7000 units IV onetime, aspirin 81 daily, Losartan 50 mg daily. The patient getting half-normal saline 80 mL an hour. We will repeat SMA-7, magnesium and phosphorus in the morning. We will continue present therapy and we will follow. Ean Pacheco MD
[2017-08-18] MEDS: Sodium Chloride 0.45% 1,000 ML IV SCH ×3 (04:03→10:45)
[2017-08-18 06:13] VITALS: O2SAT 99
--- NOTE | 2017-08-18 07:21 | CP.PCM.PCO ---
Physician Communication Note - Physician Communication Note Physician Communication Note: Rx [id number]/?home today
[2017-08-18] MEDS: Potassium Chloride 20 mEq ER Tab PO SCH (09:23)
[2017-08-18] MEDS: Metoprolol Succinate 50 mg XL Tab PO SCH (09:23)
[2017-08-18 10:48] LABS: BLOOD UREA NITROGEN 8 mg/dL (7-21); CALCIUM 9.1 mg/dL (8.4-10.5); CARBON DIOXIDE 26 mmol/L (21-33); CHLORIDE 106 mmol/L (98-107); GFR AFRICAN-AMERICAN > 60; GLUCOSE,RANDOM 138 mg/dL (70-110); POTASSIUM 3.8 mmol/L (3.6-5.0); SODIUM 139 mmol/L (132-148)
[2017-08-18 11:53] VITALS: BP 145/95; PULSE 72; RESP 18; TEMP 98.3
[2017-08-20 05:14] LABS: B2 GLYCOPROTEIN I AB(IGA) <9 SAU (<=20); B2 GLYCOPROTEIN I AB(IGG) <9 SGU (<=20); B2 GLYCOPROTEIN I AB(IGM) <9 SMU (<=20)
[2017-08-20 14:42] LABS: CARDIOLIPIN AB (IGA) <11 APL (<=11)
[2017-08-21 03:47] LABS: PHOSPHATIDYLSERINE AB IGA <20 U/mL (<20); PHOSPHATIDYLSERINE AB IGM <25 U/mL (<25)
== END 2017-08-18 13:16 | disposition home or self-care (01) | DRG 271 ==
LOC: ED 17:19 → ERH 20:31 → 3RNO 22:04 → 2RSO 08-16 14:00
PROVIDERS: ADMIT Surgery; ATTEND Surgery
PROC: 047H3DZ Dilation of Right External Iliac Artery with Intraluminal Device, Percutaneous Approach (ICD-10-PCS; principal; 2017-08-16)
PROC: 06CF3ZZ Extirpation of Matter from Right External Iliac Vein, Percutaneous Approach (ICD-10-PCS; 2017-08-16)
PROC: 06CM3ZZ Extirpation of Matter from Right Femoral Vein, Percutaneous Approach (ICD-10-PCS; 2017-08-16)
PROC: 3E03317 Introduction of Other Thrombolytic into Peripheral Vein, Percutaneous Approach (ICD-10-PCS; 2017-08-16)
DX: I82.411 Acute embolism and thrombosis of right femoral vein (principal); D68.59 Other primary thrombophilia; I82.421 Acute embolism and thrombosis of right iliac vein; I08.1 Rheumatic disorders of both mitral and tricuspid valves; I10 Essential (primary) hypertension; E78.5 Hyperlipidemia, unspecified; I25.2 Old myocardial infarction; F51.02 Adjustment insomnia; I25.10 Atherosclerotic heart disease of native coronary artery without angina pectoris; Z79.02 Long term (current) use of antithrombotics/antiplatelets; Z79.82 Long term (current) use of aspirin; Z79.899 Other long term (current) drug therapy; Z85.840 Personal history of malignant neoplasm of eye; Z95.5 Presence of coronary angioplasty implant and graft; R40.2412 Glasgow coma scale score 13-15, at arrival to emergency department

== ENCOUNTER 2019-02-07 07:05 | Outpatient (CLI) | payer BC | END 2019-02-07 07:06 | disposition home or self-care (01) | LOC: RAD 07:05 | DX: C69.42 Malignant neoplasm of left ciliary body (principal) ==